=== PATIENT | female | born 1930 | race Caucasian/White ===

== ENCOUNTER 2019-01-14 05:32 | Day surgery (SDC) | payer OTHER ==
[~2019-01-14] VITALS: Ht 147.3 cm; Wt 81.7 kg
--- NOTE | ~2019-01-14 | O ---
[facility] [place] [address] OPERATIVE REPORT Name: DIXON VARGAS Room #: 150-7 [facility] M.R.#: [id number] Admission: 01/14/19 Attend Phys: Alen Bass MD Discharge: Date of : 34 Report #: [id number] THIS REPORT FOR: //name// CC: KATI Bass DATE OF SERVICE: 01/14/2019 PREOPERATIVE DIAGNOSIS: Bilateral lower lid entropion. POSTOPERATIVE DIAGNOSIS: Bilateral lower lid entropion. PROCEDURE: Bilateral lower lid entropion repair. SURGEON: Alen Bass M.D. WEB FEEDER: None. ANESTHESIA: MAC. COMPLICATIONS: None. 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 She presents today for bilateral lower lid entropion repair in order to attempt to improve her ocular surface milieu level of comfort and quality of vision. Informed consent was obtained to include but not limited to the potential risk for loss of vision, bleeding, infection, failure to improve the problem, the potential need for further surgery or treatment. DESCRIPTION OF PROCEDURE: The patient was taken to the operating room where 2% Xylocaine with epinephrine mixed with equal parts of 0.75% Marcaine with Wydase was administered transcutaneously and transconjunctivally to each lower lid, lateral canthus and medial canthus. The patient was subsequently prepped and draped in the usual sterile fashion. Attention was first turned to the left side where a transconjunctival incision was made below the inferior border of the tarsal plate across the width of the lid. The dissection was carried down into the premalar tissues. The lower lid retractors were then advanced and reattached to the anterior superior surface of the tarsal plate with multiple interrupted mattress, 5-0 chromic sutures everting the entire lid margin. Hemostasis was achieved with diligent monopolar cautery as it was throughout the case. [address] [address] OPERATIVE REPORT Name: DIXON VARGAS Room #: [address]#: [id number] Admission: 01/14/19 Attend Phys: Alen Bass MD Discharge: Date of : 34 Report #: [id number] Attention was then turned to the other side, where the same procedure was performed. The wounds were then cleaned and dressed with erythromycin ophthalmic ointment. The patient subsequently transported to the recovery area having tolerated the procedures well with no anesthetic or operative complications being noted. By: [id number] Alen Bass MD /nt
[~2019-01-14 05:32] MED LIST: ALLERGY RELIEF10 M1 PO; APAP650 PO; ASPIRIN81 M2 PO; CALCIUM 600+D1 EACH PO; CHLORTHALIDONE25 MG PO; CYMBALTA20 MG PO; MULTIVITAMINS1 EAC7 PO; PEPCID20 MG PO; PROTONIX40 M1 PO; STOOL SOFTENER240 MG PO; TRAMADOL 50 MG50 MG PO; TRAZODONE HCL50 MG PO
[2019-01-14 12:00] VITALS: BP 151/69
== END 2019-01-14 13:30 | disposition home or self-care (01) ==
LOC: OR 05:32 → TBA 05:32 → OR 07:45
DX: H02.005 Unspecified entropion of left lower eyelid (principal); H02.002 Unspecified entropion of right lower eyelid; I10 Essential (primary) hypertension; F32.9 Major depressive disorder, single episode, unspecified; F41.9 Anxiety disorder, unspecified; M79.7 Fibromyalgia; Z98.41 Cataract extraction status, right eye; Z98.42 Cataract extraction status, left eye; Z90.710 Acquired absence of both cervix and uterus; Z86.73 Personal history of transient ischemic attack (TIA), and cerebral infarction without residual deficits; Z98.890 Other specified postprocedural states; Z79.899 Other long term (current) drug therapy; Z88.0 Allergy status to penicillin; Z88.2 Allergy status to sulfonamides; Z79.82 Long term (current) use of aspirin
CPT/HCPCS: 50010; 50101; 50386; 50398; 51636; 56527; 56531; 62110; 62850; 70005